=== PATIENT | female | born 1970 | race African-American/Black ===

== ENCOUNTER 2019-09-07 09:34 | Emergency (ER) | payer OTHER, SELFPAY ==
[2019-09-07] VITALS (18 sets, daily range): BP systolic 108–142; BP diastolic 73–90; PULSE 100–118; RESP 9–22; TEMP 36.7; O2SAT 98–100
--- NOTE | ~2019-09-07 | XR_ITS ---
EXAMINATION: XR chest 1V portable DATE: 09/07/2019 10:09 INDICATION: Shortness of breath. Tachycardia. TECHNIQUE: A single frontal view of the chest was obtained. COMPARISON: Chest 2 views 07/24/2017 FINDINGS: The chest demonstrates clear lungs without pneumonia, pleural effusion, or pneumothorax. Th e heart size is normal. Surgical clips in the right upper quadrant are likely from cholecystectomy. IMPRESSION: 1. No acute cardiopulmonary disease. Reviewed, dictated and finalized at location A.
--- NOTE | ~2019-09-07 | CT_ITS ---
EXAMINATION: CTA chest PE protocol DATE: 09/07/2019 11:18 CDT INDICATION: Shortness of breath TECHNIQUE: Computed tomographic angiography (CTA) of the chest was performed with 100 mL Omnipaque-35 0 intravenous contrast. The dose-length product was 233.66 mGy-cm. Maximum intensity projection 3D-re constructions of the aorta and other arteries were constructed by the technologist on a separate work station. Automated exposure control and iterative reconstruction technique were employed. COMPARISON: None. FINDINGS: The study is technically adequate without evidence for pulmonary embolism. No thoracic lymp hadenopathy. Heart size normal. No significant pleural or pericardial effusion. There is a 2.8 cm hyp odense right thyroid mass. No evidence for aortic aneurysm or dissection. The upper abdomen is unrema rkable. There are cholecystectomy clips. There is dependent atelectasis. No endobronchial lesions. No focal airspace consolidation. No pulmonary nodules. No osteolytic or osteoblastic lesions. IMPRESSION: 1. No evidence for pulmonary embolism. No acute cardiopulmonary disease. 2: Hypodense 2.8 cm mass right thyroid gland. Consider correlation with thyroid ultrasound on a nonem ergent basis. Reviewed, dictated and finalized at location A. IMPRESSION: 1. No evidence for pulmonary embolism. No acute cardiopulmonary disease. 2: Hypodense 2.8 cm mass right thyroid gland. Consider correlation with thyroid ultrasound on a nonemergent basis.
--- NOTE | 2019-09-07 09:48 | ECG_ITS ---
Measurements Intervals [place] Rate: 111 P: 56 VA: 150 QRS: 42 QRSD: 82 T: -9 QT: 341 QTc: 464 Interpretive Statements SINUS TACHYCARDIA POSSIBLE LEFT ATRIAL ENLARGEMENT NONSPECIFIC T-WAVE ABNORMALITY- INFERIOR LEADS ABNORMAL ECG Electronically Signed On 09-07-2019 14:20:30 CDT by Ernesto Chilel D.O.
--- NOTE | 2019-09-07 09:48 | ED.GENADULT ---
HPI - General Adult General Chief complaint: Unspecified Stated complaint: Weakness Source: RN notes reviewed History of Present Illness HPI narrative: Patient presents emergency department from home via EMS for weakness. Patient states that for approximately the past 3 weeks she been having a sinus headache. She states that on Friday, 3 days ago she had gone to [facility] and had a CT scan done at that time and received medicine through the IV. States that following the IV medication she had felt palpitations and states that since that time she is continued to feel shakiness and palpitations like her heart was racing. States her headache is resolved at this time she denies any fevers or chills chest pain shortness of breath abdominal pain nausea vomiting diarrhea or any other symptoms her only other associated symptom is feeling clammy. Patient states she took no medication this morning Related Data Allergies Allergy/AdvReac Type Severity Reaction Status Date / Time No Known Allergies Allergy Unknown Verified 09/07/19 09:48 Review of Systems Review of Systems: Narrative: Gen.: Denies fevers or chills Eyes: Denies eye pain or visual change ENT: Denies congestion Respiratory: Denies shortness of breath or cough CV: See HPI GI: Denies abdominal pain nausea, emesis or diarrhea denies burning, urgency, frequency or hematuria Musculoskeletal: Denies back pain or muscle pain Neuro: Denies numbness, tingling, weakness or focal weakness Skin: Denies rash Except as documented, all other systems reviewed and negative [facility] Past Medical History Medical History (Updated 09/07/19 @ 14:58 by Malachi Caicedo DO) Patient denies significant medical history Social History Social History (Updated 09/07/19 @ 09:50 by Malachi Caicedo DO) Smoking status: Never smoker Gender identity (if verbalized by the patient): Female Exam Narrative: Exam Narrative: APPEARANCE: No acute distress, nontoxic, resting in bed EYES: EOMI, Katie HEENT: Normocephalic, atraumatic, nares patent, oral mucosa moist no erythema exudate posterior pharynx RESPIRATORY: No respiratory distress Clear to auscultation bilaterally with no rhonchi wheezing or rales. CARDIOVASCULAR: Regular rate and rhythm without murmurs rubs or gallops. ABDOMINAL: Soft, nontender, nondistended, no rebound or guarding MUSCULOSKELETAl: Moves all extremities. No clubbing, cyanosis or edema. NEURO: Awake and alert. Following commands, speech normal, no focal deficits SKIN:: Warm, dry. No rashes lesions or abrasions PSYCHIATRIC: Normal affect/mood, Course Course Emergency Course: Patient remained on hall monitor throughout stay in ED no arrhythmias noted Discussed with patient results of workup and diagnosis. Discussed need for follow-up with primary care, proper use of medication, and reasons to return to the emergency department. Patient understands and agrees to current treatment plan discussed with patient thyroid nodule and need for follow-up as an outpatient Vital Signs Vital signs: Vital Signs Temperature 98.1 F 09/07/19 09:39 Pulse Rate 118 H 09/07/19 09:39 Respiratory Rate 10 L 09/07/19 09:39 Blood Pressure 135/90 09/07/19 09:39 Pulse Oximetry 100 09/07/19 09:39 Temperature 98.1 F 09/07/19 09:39 Pulse Rate 100 09/07/19 11:30 Respiratory Rate 9 L 09/07/19 11:30 Blood Pressure 135/73 09/07/19 11:01 Pulse Oximetry 100 09/07/19 11:30 Medical Decision Making Vital Signs Vital Signs: Vital Signs Temperature 98.1 F 09/07/19 09:39 Pulse Rate 118 H 09/07/19 09:39 Respiratory Rate 10 L 09/07/19 09:39 Blood Pressure 135/90 09/07/19 09:39 Pulse Oximetry 100 09/07/19 09:39 Temperature 98.1 F 09/07/19 09:39 Pulse Rate 100 09/07/19 11:30 Respiratory Rate 9 L 09/07/19 11:30 Blood Pressure 135/73 09/07/19 11:01 Pulse Oximetry 100 09/07/19 11:30 Lab Data Result diagrams: 09/07/19 10:17
[2019-09-07] MEDS: SODIUM CHLORIDE 0.9% IV 1,000 ML 999 ML IV CONT ×2 (09:54→11:41)
[2019-09-07 10:27] LABS: Basophils Percent Auto 0.3 % (0.2-1.2); Eosinophils Percent Auto 0.5 % (0-4.4); Hemoglobin 13.1 g/dL (12.0-15.0); Immature Granulocyte Absolute 0.02 K/mm3 (0.00-0.031); Immature Granulocyte Percent A 0.3 % (0-0.5); Lymphocytes Absolute Auto 1.83 K/mm3 (0.9-3.2); Lymphocytes Percent Auto 27.7 % (18.3-44.2); Mean Corpuscular Hemoglobin 27.9 pg (26-34); Mean Corpuscular Volume 87.4 fl (80-100); Mean Platelet Volume 9.2 fl (7.4-10.4); Monocytes Absolute Auto 0.5 K/mm3 (0.1-0.6); Monocytes Percent Auto 7.3 % (2.6-8.5); Neutrophils Absolute Auto 4.2 K/mm3 (1.3-6.7); Neutrophils Percent Auto 63.9 % (45.5-73.1); Platelet Count Result 295 k/mm3 (150-375); Red Blood Count 4.69 M/mm3 (4.2-5.4); Red Cell Distribution Width 13.6 % (11.5-14.5); White Blood Count 6.6 K/mm3 (4.5-10.0)
[2019-09-07 10:34] LABS: Add Urine Microscopic? YES; Appearance Urine Clear (Clear); Bilirubin Urine Negative (Negative); Blood Urine 1+ (Negative); Color Urine Colorless (Yellow); Glucose Urine UA Negative (Negative); Ketones Urine Negative (Negative); Leukocyte Esterase Ur Negative LEU/UL (Negative); Nitrate Urine Negative (Negative); Protein Urine Negative (Negative); RBC Urine 0-2 /hpf (0-2); Specific Grav Ur 1.005 (1.001-1.035); Squamous Epithelial Cell Urine Rare /hpf (Few); Urobilinogen Urine Negative mg/dL (<2.0); WBC Urine 0-3 /hpf
[2019-09-07 10:39] LABS: Partial Thromboplastin Time 28.9 SECONDS (22.3-36.8)
[2019-09-07 10:41] LABS: Alanine Aminotransferase 20 U/L (4-35); Albumin Level 4.6 g/dL (3.5-5.1); Alkaline Phosphatase 133 U/L (38-126); Aspartate Amino Transferase 25 U/L (14-36); Bilirubin,Total 0.3 mg/dL (0.2-1.3); Blood Urea Nitrogen 10 mg/dL (7-17); Calcium 9.4 mg/dL (8.4-10.2); Carbon Dioxide 29 mmol/L (22-30); Chloride 104 mmol/L (98-107); Estimated CRCL calculation 76 ml/min; Estimated Glomerular Filt Rate > 60; Glucose 117 mg/dL (65-105); Potassium 3.9 mmol/L (3.4-5.0); Sodium 141 mmol/L (137-145)
--- NOTE | 2019-09-07 10:42 | PC.NURSE ---
Pt states she is weak and lightheaded. Pt states earlier her HR went up again. Pt states she feels bad
[2019-09-07 10:52] LABS: Troponin I < 0.012 ng/mL (0.000-0.034)
[2019-09-07 13:47] LABS: Troponin I < 0.012 ng/mL (0.000-0.034)
== END 2019-09-07 15:14 | disposition home or self-care (01) ==
PROVIDERS: Emergency Provider Emergency Medicine; PCP Internal Medicine Gastroenterology
DX: R00.2 Palpitations (principal); R00.0 Tachycardia, unspecified
CPT/HCPCS: 36415; 71045; 71275; 80053; 81001; 84484; 85025; 85610; 85730; 93005; 96360; 96361; 99284; J7030; Q9967

== ENCOUNTER 2019-09-14 19:22 | Emergency (ER) | payer OTHER, SELFPAY ==
--- NOTE | ~2019-09-14 | XR_ITS ---
EXAMINATION: XR chest 2V EXAM DATE: 09/14/2019 19:48 INDICATION: Heart palpitations, chest discomfort. TECHNIQUE: Frontal and lateral projections of the chest obtained and reviewed. Comparison is made to prior examination from 09/07/2019. FINDINGS: The lungs are clear. There are no pleural effusions. The cardiomediastinal silhouette is within normal limits. There is no pneumothorax suspected. The bones and soft tissues are unremarkab le. There are cholecystectomy clips. There is no significant interval change. IMPRESSION: No acute cardiopulmonary findings. Reviewed, dictated and finalized at location A.
[2019-09-14 19:25] VITALS: BP 133/90; PULSE 118; RESP 20; TEMP 36.9; O2SAT 100
--- NOTE | 2019-09-14 19:31 | ECG_ITS ---
Measurements Intervals [place] Rate: 119 P: 64 WI: 142 QRS: 72 QRSD: 78 T: 3 QT: 339 QTc: 478 Interpretive Statements SINUS TACHYCARDIA NONSPECIFIC T-WAVE ABNORMALITY- ANTEROLAT/INF LEADS ABNORMAL ECG Electronically Signed On 09-15-2019 7:17:27 CDT by Ernesto Chilel D.O.
[2019-09-14 19:47] LABS: Basophils Percent Auto 0.3 % (0.2-1.2); Eosinophils Absolute Auto 0.1 K/mm3 (0-0.3); Eosinophils Percent Auto 0.9 % (0-4.4); Hematocrit 41.2 % (37.0-47.0); Hemoglobin 13.4 g/dL (12.0-15.0); Immature Granulocyte Absolute 0.02 K/mm3 (0.00-0.031); Immature Granulocyte Percent A 0.3 % (0-0.5); Lymphocytes Absolute Auto 3.02 K/mm3 (0.9-3.2); Lymphocytes Percent Auto 38.9 % (18.3-44.2); Mean Corpuscular HGB Conc 32.5 g/dl (32-36); Mean Corpuscular Hemoglobin 28.6 pg (26-34); Mean Platelet Volume 10.3 fl (7.4-10.4); Monocytes Absolute Auto 0.7 K/mm3 (0.1-0.6); Monocytes Percent Auto 8.5 % (2.6-8.5); Neutrophils Percent Auto 51.1 % (45.5-73.1); Platelet Count Result 302 k/mm3 (150-375); Red Blood Count 4.68 M/mm3 (4.2-5.4); Red Cell Distribution Width 13.7 % (11.5-14.5); White Blood Count 7.8 K/mm3 (4.5-10.0)
[2019-09-14] MEDS: ASPIRIN 81 MG CHEWABLE TABLET 324 MG PO (19:52)
[2019-09-14 20:20] LABS: Prothrombin Time 12.6 Seconds (11.1-14.7)
[2019-09-14 20:21] LABS: Partial Thromboplastin Time 28.6 SECONDS (22.3-36.8)
[2019-09-14 20:22] LABS: Blood Urea Nitrogen 13 mg/dL (7-17); Carbon Dioxide 31 mmol/L (22-30); Chloride 102 mmol/L (98-107); Estimated CRCL calculation 67 ml/min; Estimated Glomerular Filt Rate > 60; Glucose 123 mg/dL (65-105); Potassium 3.9 mmol/L (3.4-5.0); Sodium 139 mmol/L (137-145)
[2019-09-14 20:34] LABS: Troponin I < 0.012 ng/mL (0.000-0.034)
[2019-09-14 20:57] VITALS: BP 126/82; PULSE 102; RESP 18; O2SAT 99
--- NOTE | 2019-09-14 21:05 | ED.GENADULT ---
HPI - General Adult General Chief complaint: Weakness Stated complaint: fait Time Seen by Provider: 09/14/19 20:40 Source: patient Mode of arrival: ambulatory Limitations: no limitations History of Present Illness HPI narrative: This patient is a 49 year old female who presents for evaluation of rapid heart rate. She states she was evaluated at [facility] last week for similar occurrence. She states her symptoms resolved but returned tonight. Just prior to arrival she developed palpitations and she felt her heart beating rapidly. She checked her heart rate and she states it was 120. She reports she had brief episode of chest pressure but she has not chest pain or sob. Related Data Home Medications Medication Instructions Recorded Confirmed amoxicillin 875 mg PO BID 09/14/19 calcium carbonate-vitamin D3 1 tablet PO DAILY 09/14/19 09/14/19 Allergies Allergy/AdvReac Type Severity Reaction Status Date / Time No Known Allergies Allergy Unknown Verified 09/07/19 09:48 Review of Systems Review of Systems: All systems reviewed & are unremarkable except as noted in HPI and below Constitutional: Constitutional: Denies chills and Denies fever(s) Cardiovascular: Cardiovascular: Reports chest pain, Reports rapid heart rate and Denies radiating jaw, neck or arm pain Respiratory: Respiratory: Denies cough, Denies dyspnea and Denies wheezing Gastrointestinal: Gastrointestinal: Denies abdominal pain, Denies nausea and Denies vomiting PMFSH Past Medical History Medical History (Updated 09/15/19 @ 01:38 by Claudia Mcnair MD) Patient denies significant medical history Social History Social History (Updated 09/07/19 @ 09:50 by Malachi Caicedo DO) Smoking status: Never smoker Gender identity (if verbalized by the patient): Female Exam Narrative: Exam Narrative: GENERAL: Well-appearing, well-nourished, and in no acute distress. HEAD: Normocephalic, atraumatic EYES: PERRLA and EOMI, conjunctiva clear without discharge THROAT:Mucous membranes moist, Oropharynx normal without erythema, exudate, peritonsillar swelling or fluctuance NECK: Supple, without lymphadenopathy or mass RESPIRATORY: No respiratory distress, Airway patent, Respirations non-labored, Clear to auscultation without rales, rhonchi or wheeze HEART: Regular rate and rhythm. No murmur heard. Normal peripheral pulses. ABDOMEN: Soft, nontender, nondistended, normal active bowel sounds. No masses. No rebound or guarding, No organomegaly. EXTREMITIES: No edema, normal strength with full range of motion. SKIN: Warm, dry, normal color without rash NEURO: Alert and oriented x3. CN 2-12 grossly intact. No focal deficits. PSYCH: Normal mood and affect. Course Reevaluation(s) Reevaluation #1: PAtient HR in 80 and it will occasionally increase. I discussed with patient that she will need to follow up with PCP for Date: 09/15/19 Time: 01:33 Vital Signs Vital signs: Vital Signs Temperature 98.4 F 09/14/19 19:25 Pulse Rate 118 H 09/14/19 19:25 Respiratory Rate 20 09/14/19 19:25 Blood Pressure 133/90 09/14/19 19:25 Pulse Oximetry 100 09/14/19 19:25 Temperature 98.4 F 09/14/19 19:25 Pulse Rate 90 09/15/19 01:15 Respiratory Rate 15 09/15/19 01:15 Blood Pressure 127/89 09/15/19 01:15 Pulse Oximetry 97 09/15/19 01:15 Medical Decision Making Vital Signs Vital Signs: Vital Signs Temperature 98.4 F 09/14/19 19:25 Pulse Rate 118 H 09/14/19 19:25 Respiratory Rate 20 09/14/19 19:25 Blood Pressure 133/90 09/14/19 19:25 Pulse Oximetry 100 09/14/19 19:25 Temperature 98.4 F 09/14/19 19:25 Pulse Rate 90 09/15/19 01:15 Respiratory Rate 15 09/15/19 01:15 Blood Pressure 127/89 09/15/19 01:15 Pulse Oximetry 97 09/15/19 01:15 Lab Data Lab results reviewed: Yes I reviewed the patient's lab results. Result diagrams: 09/14/19 19:42 09/14/19 20:02
[2019-09-14 21:33] LABS: Lipase 110 U/L (23-300)
[2019-09-14 21:41] LABS: D Dimer 0.38 ug/mL (<0.48)
[2019-09-14 22:04] VITALS: BP 138/77; PULSE 76; RESP 20; O2SAT 99
[2019-09-14 22:05] LABS: Thyroid Stimulating Hormone Reflex 0.329 uIU/mL (0.465-4.68)
[2019-09-14 22:56] LABS: Troponin I < 0.012 ng/mL (0.000-0.034)
[2019-09-14 22:59] VITALS: BP 132/80; PULSE 96; RESP 14; O2SAT 99
--- NOTE | 2019-09-14 22:59 | PC.NURSE ---
Assumed care of pt at this time. Report from VICENTE Johnson
[2019-09-15] VITALS: BP 144/94; PULSE 108; RESP 14; O2SAT 100
[2019-09-15 00:02] LABS: Free T4 Free Thyroxine Reflex 1.24 ng/dL (0.78-2.19)
[2019-09-15 00:30] VITALS: BP 104/89; PULSE 97; RESP 12; O2SAT 99
[2019-09-15 01:15] VITALS: BP 127/89; PULSE 90; RESP 15; O2SAT 97
== END 2019-09-15 01:15 | disposition home or self-care (01) ==
PROVIDERS: Emergency Provider General Practice; PCP Internal Medicine Gastroenterology
DX: R00.0 Tachycardia, unspecified (principal); R00.2 Palpitations
CPT/HCPCS: 36415; 71046; 80048; 83690; 83735; 84439; 84443; 84480; 84484; 85025; 85380; 85610; 85730; 93005; 99284; A9270

== ENCOUNTER 2019-09-23 08:30 | Outpatient (CLI) | payer OTHER, SELFPAY ==
--- NOTE | 2019-09-23 | ECHO_ITS ---
Patient Info Name: Kemi Paniagua Age: 49 years : 1970 Gender: Female Ht: 62 in Wt: 165 lbs BSA: 1.84 m2 HR: 93 bpm BP: 124 / 80 mmHg Heart Rhythm: Sinus Rhythm Technical Quality: Good Exam Date: 09/23/2019 9:10 AM Exam Location: [facility] Patient Status: Outpatient Admit Date: 09/23/2019 Staff Ordering Physician: StarRanda MD Healthcare Customer Service: Maria Esther Dubois RDCS Attending Provider: Dora, Randa Rhoades MD Referring Physician: Star PETERS; Exam Type: CA echo doppler color flow Study Info Indications - cardiac arrhythmia Complete two-dimensional, color flow and Doppler transthoracic echocardiogram is performed. Summary 1. Left ventricular chamber dimension is normal. 2. Left ventricular systolic function is normal, estimated at 65-70%. 3. There is no increased left ventricular wall thickness. 4. Left ventricular septal wall motion is normal. 5. The left ventricular diastolic function is grade I diastolic dysfunction. 6. Global longitudinal strain is normal at -18 %. 7. There is mild mitral valve regurgitation. 8. There is mild tricuspid valve regurgitation. 9. Thin and hypermobile atrial septum. Left Ventricle Left ventricular chamber dimension is normal. Left ventricular systolic function is normal, estimated at 65-70%. There is no increased left ventricular wall thickness. Left ventricular septal wall motion is normal. The left ventricular diastolic function is grade I diastolic dysfunction. Global longitudinal strain is normal at -18 %. Right Ventricle Right ventricular chamber dimension is normal. Right ventricular systolic function is normal. Left Atria Left atrial chamber dimension is normal. Right Atria Right atrial chamber dimension is normal. Atrial Septum Intact interatrial septum visualized by color flow imaging. Thin and hypermobile atrial septum. Aortic Valve The aortic valve is trileaflet. There is mild aortic valve sclerosis. There is no aortic valve stenosis. There is trace aortic valve regurgitation. Pulmonic Valve The pulmonic valve is normal. There is no pulmonic valve stenosis. There is trace pulmonic regurgitation. Mitral Valve The mitral valve has thickened leaflets. There is no mitral valve stenosis. There is mild mitral valve regurgitation. Tricuspid Valve The tricuspid valve leaflets are normal. There is no significant tricuspid valve stenosis. There is mild tricuspid valve regurgitation. No pulmonary hypertension, estimated pulmonary arterial systolic pressure is 18 mmHg. Pericardium/Pleural The pericardium appears normal. There is no pericardial effusion. Inferior Vena Cava Normal inferior vena cava with >50% collapse upon inspiration consistent with normal right atrial pressure, 10 mmHg. Aorta The aortic root size at the sinus of Valsalva is normal. The prox ascending aorta size is normal. Left Ventricular Outflow Tract Name Value Normal LVOT 2D LVOT Diameter 2.0 cm LVOT Doppler LVOT Peak Gradient 4 mmHg LVOT Mean Gradient 3 mmHg
== END 2019-09-23 08:31 | disposition home or self-care (01) ==
LOC: ANHCARD 08:31
PROVIDERS: PCP Internal Medicine Gastroenterology; Visit Provider Internal Medicine Gastroenterology
DX: I34.0 Nonrheumatic mitral (valve) insufficiency (principal); I36.1 Nonrheumatic tricuspid (valve) insufficiency
CPT/HCPCS: 93306

== ENCOUNTER 2019-09-25 01:06 | Emergency (ER) | payer OTHER, SELFPAY ==
[2019-09-25] VITALS (11 sets, daily range): BP systolic 125–136; BP diastolic 71–85; PULSE 84–125; RESP 11–18; TEMP 36.4; O2SAT 95–100
--- NOTE | 2019-09-25 01:20 | ED.HA ---
HPI - Headache General Chief Complaint: Headache Stated Complaint: VELAZQUEZ, weak Time Seen by Provider: 09/25/19 01:19 History of Present Illness HPI Narrative: VELAZQUEZ for the past week. Gradual onset. Located in neck and occiput. radiates/wraps around the temples in band like pattern. She is current on antibiotics for sinusitis. No fever, ear pain, vertigo. Related Data Home Medications Medication Instructions Recorded Confirmed amoxicillin 875 mg PO BID 09/14/19 calcium carbonate-vitamin D3 1 tablet PO DAILY 09/14/19 09/14/19 Allergies Allergy/AdvReac Type Severity Reaction Status Date / Time No Known Allergies Allergy Unknown Verified 09/25/19 01:26 Review of Systems Review of Systems: All systems reviewed & are unremarkable except as noted in HPI and below Constitutional: Constitutional: Denies chills and Denies fever(s) Eyes: Eyes: Denies change in vision ENT: Denies sore throat Cardiovascular: Cardiovascular: Denies chest pain Respiratory: Respiratory: Denies dyspnea Gastrointestinal: Gastrointestinal: Reports nausea and Denies vomiting [facility] Past Medical History Medical History Patient denies significant medical history Social History Social History Smoking status: Never smoker Gender identity (if verbalized by the patient): Female Exam Const: General: healthy appearing, no acute distress and alert Orientation/consciousness: patient oriented x3 HENMT: Head: normal to inspection Neck: Neck: normal visual inspection and no lymphadenopathy Chest: Chest palpation & inspection: no tenderness Resp: Effort & Inspection: normal respiratory effort Auscultation: clear to auscultation bilaterally, no rales, no rhonchi and no wheezes Cardio: Jugular venous distension: no JVD Rate: regular rate Rhythm: regular rhythm Heart sounds: no murmurs GI: Inspection: non-distended GI Palp: Yes Soft to palpation and No Tenderness to palpation present (GI) Skin: General skin exam: normal color Neuro: General: patient oriented x3 and moves all extremities Speech: normal speech Extrem: General: no edema Psych: Appearance: well kempt Affect: normal affect Course Vital Signs Vital signs: Vital Signs Temperature 36.4 C 09/25/19 01:11 Pulse Rate 105 H 09/25/19 01:11 Respiratory Rate 16 09/25/19 01:11 Blood Pressure 128/79 09/25/19 01:11 Pulse Oximetry 100 09/25/19 01:11 Temperature 36.4 C 09/25/19 01:11 Pulse Rate 84 09/25/19 03:41 Respiratory Rate 18 09/25/19 03:41 Blood Pressure 125/81 09/25/19 03:41 Pulse Oximetry 100 09/25/19 03:41 MDM - Headache MDM Narrative Medical decision making narrative: VELAZQUEZ resolved with treatment Discharge Plan Discharge Clinical Impression: Tension headache Patient Disposition: Home, Self-Care Condition: Stable Instructions: Tension Headache (ED) Prescriptions: No Action clindamycin HCl 300 mg capsule 300 mg PO Q8H Qty: 30 RF: 0 amoxicillin 875 mg tablet 875 mg PO BID RF: 0 calcium carbonate-vitamin D3 600 mg(1,500mg) -400 unit tablet 1 tablet PO DAILY RF: 0 Follow-up/Referrals: Star,Randa Rhoades MD [Primary Care Provider] - Discharge Date/Time: 09/25/19 03:43
[2019-09-25] MEDS: SODIUM CHLORIDE 0.9% IV 500 ML 999 ML IV CONT (02:09)
[2019-09-25] MEDS: METOCLOPRAMIDE HCL INJ 10 MG/2 ML VIAL IV PUSH (02:10)
[2019-09-25] MEDS: OXYMETAZOLINE HCL 0.05% NAS 15 ML BTL (*BKC) 2 SPRAY NASAL (02:10)
== END 2019-09-25 03:43 | disposition home or self-care (01) ==
PROVIDERS: Emergency Provider Emergency Medicine; PCP Internal Medicine Gastroenterology
DX: G44.209 Tension-type headache, unspecified, not intractable (principal)
CPT/HCPCS: 96374; 96375; 99284; A9270; J0131; J1200; J2765; J7040

== ENCOUNTER 2019-10-05 18:49 | Emergency (ER) | payer OTHER, SELFPAY ==
[2019-10-05 18:48] VITALS: BP 143/87; PULSE 100; RESP 18; TEMP 37; O2SAT 100
[2019-10-05 18:57] VITALS: PULSE 113
--- NOTE | 2019-10-05 18:59 | ECG_ITS ---
Measurements Intervals [place] Rate: 126 P: 58 MS: 128 QRS: 139 QRSD: 73 T: -29 QT: 306 QTc: 443 Interpretive Statements SINUS TACHYCARDIA LIMB LEAD REVERSAL ST ELEVATION IN ANTERIOR LEADS- CONSIDER INJURY, PERICARDITIS, OR EARLY REPOLARIZATION NONSPECIFIC ST & T-WAVE ABNORMALITY- INF/LAT LEADS ABNORMAL ECG Electronically Signed On 10-05-2019 19:57:15 CDT by Ernesto Chilel D.O.
--- NOTE | 2019-10-05 19:13 | ECG_ITS ---
Measurements Intervals [place] Rate: 114 P: 56 [place]: 154 QRS: 79 QRSD: 85 T: 20 QT: 321 QTc: 443 Interpretive Statements SINUS TACHYCARDIA POSSIBLE LEFT ATRIAL ENLARGEMENT NONSPECIFIC ST & T-WAVE ABNORMALITY- INF/LAT LEADS ABNORMAL ECG Electronically Signed On 10-05-2019 19:57:35 CDT by Ernesto Chilel D.O.
[2019-10-05 19:18] LABS: Basophils Percent Auto 0.3 % (0.2-1.2); Eosinophils Percent Auto 0.3 % (0-4.4); Hematocrit 40.1 % (37.0-47.0); Immature Granulocyte Absolute 0.02 K/mm3 (0.00-0.031); Immature Granulocyte Percent A 0.3 % (0-0.5); Lymphocytes Absolute Auto 2.68 K/mm3 (0.9-3.2); Lymphocytes Percent Auto 35.6 % (18.3-44.2); Mean Corpuscular HGB Conc 32.4 g/dl (32-36); Mean Corpuscular Hemoglobin 28.4 pg (26-34); Mean Corpuscular Volume 87.7 fl (80-100); Mean Platelet Volume 9.3 fl (7.4-10.4); Monocytes Absolute Auto 0.7 K/mm3 (0.1-0.6); Monocytes Percent Auto 9.6 % (2.6-8.5); Neutrophils Absolute Auto 4.1 K/mm3 (1.3-6.7); Neutrophils Percent Auto 53.9 % (45.5-73.1); Platelet Count Result 343 k/mm3 (150-375); Red Blood Count 4.57 M/mm3 (4.2-5.4); Red Cell Distribution Width 13.5 % (11.5-14.5); White Blood Count 7.5 K/mm3 (4.5-10.0)
[2019-10-05 19:21] LABS: Add Urine Microscopic? YES; Appearance Urine Clear (Clear); Bilirubin Urine Negative (Negative); Blood Urine 1+ (Negative); Color Urine Colorless (Yellow); Glucose Urine UA Negative (Negative); Ketones Urine Negative (Negative); Leukocyte Esterase Ur Negative LEU/UL (Negative); Nitrate Urine Negative (Negative); Protein Urine Negative (Negative); RBC Urine 0-2 /hpf (0-2); Specific Grav Ur 1.005 (1.001-1.035); Urobilinogen Urine Negative mg/dL (<2.0); WBC Urine 0-3 /hpf
[2019-10-05 19:36] LABS: Alanine Aminotransferase 23 U/L (4-35); Albumin Level 4.7 g/dL (3.5-5.1); Alkaline Phosphatase 107 U/L (38-126); Aspartate Amino Transferase 26 U/L (14-36); Bilirubin,Total 0.1 mg/dL (0.2-1.3); Blood Urea Nitrogen 14 mg/dL (7-17); Calcium 9.7 mg/dL (8.4-10.2); Carbon Dioxide 27 mmol/L (22-30); Chloride 105 mmol/L (98-107); Estimated Glomerular Filt Rate > 60; Glucose 126 mg/dL (65-105); Potassium 4.1 mmol/L (3.4-5.0); Sodium 136 mmol/L (137-145)
[2019-10-05 19:44] VITALS: BP 144/75; PULSE 99; RESP 14; O2SAT 100
[2019-10-05 19:46] LABS: Erythrocyte Sedimentation Rate 29 mm/hr (0-20)
[2019-10-05 19:48] LABS: Troponin I < 0.012 ng/mL (0.000-0.034)
[2019-10-05] MEDS: SODIUM CHLORIDE 0.9% IV 1,000 ML 999 ML IV CONT (19:49)
--- NOTE | 2019-10-05 20:10 | ED.WEAKNESS ---
HPI - Weakness General Chief complaint: Weakness Stated complaint: weakness x 1 month Time Seen by Provider: 10/05/19 18:52 History of Present Illness HPI Narrative: Patient is a 49-year-old female who presents ER with complaint of weakness. Patient has had this issue recurrently over the last month. Reports it is mostly in the mornings will last until about noon. Today it never went away. She has been seen in this ER 3 times for this and wants to [place]. She had an echocardiogram a week and a half ago. She was also told that she has a thyroid nodule that is currently being worked up. Patient denies any chest pain or shortness of breath. Feels throbbing in her upper chest and into her neck. Does not think is her heartbeat and does not feel palpitations. Denies history of anxiety or depression. She does report that she is eating less and sleeping less. Denies any new stressors at home but she does have a 19-year-old daughter who is totally disabled and she is the primary caregiver for this individual. Patient does report she has some mild acid reflux but does not think it is totally associated. Related Data Allergies Allergy/AdvReac Type Severity Reaction Status Date / Time No Known Allergies Allergy Unknown Verified 10/05/19 18:58 Review of Systems Review of Systems: All systems reviewed & are unremarkable except as noted in HPI and below Constitutional: Constitutional: Denies chills, Reports fatigue, Denies fever(s) and Reports weakness ENT: Denies nasal congestion and Denies sore throat Cardiovascular: Cardiovascular: Denies chest pain and Denies radiating jaw, neck or arm pain Respiratory: Respiratory: Denies chest congestion, Denies cough, Denies dyspnea and Denies wheezing Gastrointestinal: Gastrointestinal: Denies abdominal pain, Reports heartburn, Denies nausea and Denies vomiting Psychiatric: Psychiatric: Denies anxiety and Denies depression PMFSH Past Medical History Medical History (Updated 10/05/19 @ 20:57 by Aman Deal MD) Patient denies significant medical history Surgical History Surgical History (Updated 10/05/19 @ 20:17 by Aman Deal MD) History of cholecystectomy History of tubal ligation Social History Social History Smoking status: Never smoker Gender identity (if verbalized by the patient): Female Exam Narrative: Exam Narrative: GENERAL: Well-appearing, well-nourished, and in no acute distress. HEAD: Normocephalic, atraumatic. ENT: Mucous membranes moist. CHEST: Clear to auscultation. No respiratory distress. HEART: Regular rate and rhythm. Normal peripheral pulses. ABDOMEN: Soft, nontender, nondistended,. EXTREMITIES: Normal range of motion. No edema. SKIN: Warm, dry, no rash. NEURO: Alert and oriented x3. Course Course Emergency Course: Discussed results. Needs follow-up with her PCP. Discussed that she should talk to her doctor about whether her mental health is causing some of her symptoms. She may also benefit from a stress test. Vital Signs Vital signs: Vital Signs Temperature 98.6 F 10/05/19 18:48 Pulse Rate 100 10/05/19 18:48 Respiratory Rate 18 10/05/19 18:48 Blood Pressure 143/87 H 10/05/19 18:48 Pulse Oximetry 100 10/05/19 18:48 Temperature 98.6 F 10/05/19 18:48 Pulse Rate 86 10/05/19 20:49 Respiratory Rate 1 L 10/05/19 20:49 Blood Pressure 125/84 10/05/19 20:49 Pulse Oximetry 99 10/05/19 20:49 MDM - Weakness Lab Data Result diagrams: 10/05/19 19:11 10/05/19 19:11 Labs: Lab Results 10/05/19 10/05/19 10/05/19 Range/Units 19:10 19:10 19:11 WBC (4.5-10.0) K/mm3 RBC (4.2-5.4) M/mm3 Hgb (12.0-15.0) g/dL Hct (37.0-47.0) % MCV (80-100) fl MCH (26-34) pg MCHC (32-36) g/dl RDW (11.5-14.5) % Plt Count (150-375) k/mm3 MPV (7.4-10.4) fl Immature Gran % (Auto)
[2019-10-05 20:11] LABS: CRP 0.7 mg/dL (<1.0)
[2019-10-05 20:49] VITALS: BP 125/84; PULSE 86; RESP 1; O2SAT 99
[2019-10-05 21:16] VITALS: BP 116/72; PULSE 82; RESP 14; TEMP 36.8; O2SAT 100
== END 2019-10-05 21:19 | disposition home or self-care (01) ==
PROVIDERS: Emergency Provider Emergency Medicine; PCP Internal Medicine Gastroenterology
DX: R53.1 Weakness (principal); R00.0 Tachycardia, unspecified
CPT/HCPCS: 36415; 80053; 81001; 83735; 84484; 85025; 85652; 86140; 93005; 96360; 99284; J7030

== ENCOUNTER 2020-03-22 14:53 | Emergency (ER) | payer OTHER, SELFPAY ==
[2020-03-22 15:06] VITALS: BP 132/90; PULSE 110; RESP 18; TEMP 36.4; O2SAT 100
--- NOTE | 2020-03-22 16:36 | ED.GENADULT ---
HPI - General Adult General Chief complaint: Headache Stated complaint: head pressure for weeks/dental pain Time Seen by Provider: 03/22/20 15:20 Source: patient Mode of arrival: ambulatory Limitations: no limitations History of Present Illness HPI narrative: Patient presents with chief complaint of sinus pain and pressure over the past 3 weeks. Patient states that she has been taking Claritin, using Flonase and taking [id number] sinus medicine without relief of her symptoms. Patient states she was told by her sinus specialist that she needed to have 2 teeth removed which she did on Friday but it has not remitted her symptoms. Patient reports being on amoxicillin prior to the procedure. Patient states that she has not contacted her sinus specialist since the removal. She denies fever, chills, nausea, vomiting, excess drainage, shortness of breath, trouble breathing or swallowing or handling her own secretions. Related Data Home Medications Medication Instructions Recorded Confirmed amoxicillin 03/22/20 azelastine INTRANASAL 03/22/20 fluticasone propionate INTRANASAL 03/22/20 ibuprofen 03/22/20 Allergies Allergy/AdvReac Type Severity Reaction Status Date / Time No Known Allergies Allergy Unknown Verified 10/05/19 18:58 Review of Systems Review of Systems: Narrative: CONSTITUTIONAL: Denies fever, chills, or sweats. EYES: Denies visual changes, redness, or discharge. ENT: Reports sinus pain and congestion denies rhinorrhea, sore throat, or otalgia. CARDIOVASCULAR: Denies chest pain, palpitations, or edema. RESPIRATORY: Denies cough or dyspnea. GASTROINTESTINAL: Denies abdominal pain, nausea, vomiting, or diarrhea. GENITOURINARY: Denies dysuria or hematuria. SKIN: Denies rash or itching. MUSCULOSKELETAL: Denies back pain, joint pain, or myalgia. NEUROLOGIC: Reports sinus headache, denies numbness, dizziness, or weakness. PSYCHIATRIC: Denies anxiety or depression. [facility] Past Medical History Medical History (Updated 03/22/20 @ 16:41 by Sancho Salinas PA-C) Patient denies significant medical history Surgical History Surgical History History of cholecystectomy History of tubal ligation Social History Social History Smoking status: Never smoker Gender identity (if verbalized by the patient): Female Exam Narrative: Exam Narrative: GENERAL: Well-appearing, well-nourished, and in no acute distress. HEAD: Normocephalic, atraumatic. EYES: PERRLA and EOMI. ENT: Nares clear, no rhinorrhea or epistaxis. Turbinates erythematous. There is not excessive mucus. Frontal and sinus tenderness with palpation. Mucous membranes moist. Oropharynx without tonsillar hypertrophy exudate or other lesions. Bilateral TMs pearly adorno nonbulging CHEST: No audible wheezing or trouble breathing. No respiratory distress. No tachypnea EXTREMITIES: Normal range of motion. No edema. SKIN: Warm, dry, no rash. NEURO: No focal deficits. Alert and oriented x3. PSYCH: Normal mood and affect. Course Vital Signs Vital signs: Vital Signs Temperature 97.6 F 03/22/20 15:06 Pulse Rate 110 H 03/22/20 15:06 Respiratory Rate 18 03/22/20 15:06 Blood Pressure 132/90 03/22/20 15:06 Pulse Oximetry 100 03/22/20 15:06 Temperature 97.6 F 03/22/20 15:06 Pulse Rate 110 H 03/22/20 15:06 Respiratory Rate 18 03/22/20 15:06 Blood Pressure 132/90 03/22/20 15:06 Pulse Oximetry 100 03/22/20 15:06 Medical Decision Making MDM Narrative Medical decision making narrative: Patient declined Toradol injection to help with pain and inflammation. Patient will be prescribed doxycycline and Medrol Dosepak and has been instructed to follow-up with her sinus specialist for further evaluation and management. Differential Diagnosis Differential Diagnosis: Peritonsillar abscess, sinusitis, influenza, strep, flu, Covid
== END 2020-03-22 16:55 | disposition home or self-care (01) ==
PROVIDERS: Emergency Provider Emergency Medicine; PCP Internal Medicine Gastroenterology
DX: J32.8 Other chronic sinusitis (principal)
CPT/HCPCS: 99283